=== PATIENT | female | born 1970 | race Caucasian/White ===

== ENCOUNTER 2021-11-03 17:16 | Emergency (ER) | payer OTHER ==
[~2021-11-03] VITALS: Ht 170.2 cm; Wt 90.9 kg
[2021-11-03 17:37] VITALS: BP 155/102
[2021-11-03] MEDS ORDERED: ondansetron 4mg rapidly disintigrating tab PO ONE (21:55)
[2021-11-03] MEDS ORDERED: oxyCODONE IR 5mg (immed. release) tablet PO ONE (21:55)
--- NOTE | 2021-11-03 22:25 | NUR ---
board certified orthodontist in room for splint placement at this time.
[2021-11-03] MEDS ORDERED: OXYC-658 PO (22:54)
== END 2021-11-03 23:16 | disposition home or self-care (01) ==
LOC: ER 17:18
DX: S52.591A Other fractures of lower end of right radius, initial encounter for closed fracture (principal); Z88.0 Allergy status to penicillin; Z79.899 Other long term (current) drug therapy; W51.XXXA Accidental striking against or bumped into by another person, initial encounter; Y93.89 Activity, other specified; Y92.89 Other specified places as the place of occurrence of the external cause; Y99.8 Other external cause status
CPT/HCPCS: 29125; 73110; 99283